=== PATIENT | female | born 1975 | race Caucasian/White ===

== ENCOUNTER 2016-12-02 16:37 | Emergency (ER) | payer MEDICAID ==
[~2016-12-02] VITALS: Ht 162.6 cm; Wt 66.2 kg
[2016-12-02] MEDS ORDERED: IV NS 0.9% 1,000 ML ONE (16:49)
[2016-12-02] MEDS ORDERED: IV SET PRIMARY 1 EA INFUS.SET MC ONE (16:49)
--- NOTE | 2016-12-02 16:50 | NUR ---
PT BIB RA WITH A C/O SEIZURE AT [facility]. PT STATED THAT SHE WAS RECENTLY D/C'D FROM [place]. PT APPEARS DISSHOVELED AND DIRTY. PT IS ON THE MONITOR AND CONTINUOUS PULSE OX. 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
[2016-12-02 16:58] LABS: BASOPHILS % (AUTO) 0.4 % (0.0-2.0); EOSINOPHILS # (AUTO) 0.1 /CMM (0.0-0.7); EOSINOPHILS % (AUTO) 0.9 % (0.0-6.0); HEMATOCRIT 37 % (33-45); HEMOGLOBIN 12.5 g/dL (11.5-14.8); LYMPHOCYTES # (AUTO) 1.6 /CMM (0.8-4.8); LYMPHOCYTES % (AUTO) 18.8 % (20.0-44.0); MEAN CORPUSCULAR HEMOGLOBIN 28 PG (26.0-33.0); MEAN CORPUSCULAR HGB CONC 34 g/dl (31.0-36.0); MEAN CORPUSCULAR VOLUME 81 fL (82-100); MONOCYTES # (AUTO) 0.3 /CMM (0.1-1.30); MONOCYTES % (AUTO) 3.2 % (2.0-12.0); NEUTROPHILS # (AUTO) 6.3 /CMM (1.8-8.9); NEUTROPHILS % (AUTO) 76.7 % (43.0-81.0); PLATELET COUNT (AUTO) 150 /CMM (150-450); RDW COEFFICIENT OF VARIATION 13.7 (11.5-15.0); RED BLOOD CELL COUNT(AUTO) 4.53 MIL/uL (4.0-5.2); WHITE BLOOD COUNT (AUTO) 8.3 K/uL (4.3-11.0)
[2016-12-02] MEDS ORDERED: IV NS 0.9% 1,000 ML IV ONE (17:00)
[2016-12-02 17:11] LABS: CALCIUM, SERUM 8.5 mg/dL (8.5-10.1); CREATININE 0.8 mg/dL (0.6-1.3)
--- NOTE | 2016-12-02 17:16 | NUR ---
Shaan beasley in [facility] - 12/02/16 at 1722 by FLORINA CALLED [facility] SPOKE WITH STEPHON Ward NOTIFIED HER OF HEAD CT RESULTS, SHE STATES SHE WILL PAGE THE SOFTWARE QUALITY ANALYST HOSPITALIST AT [facility] TO SPEAK WITH DR. JUSTIN WERNER
--- NOTE | 2016-12-02 17:55 | NUR ---
PT AMBULATED TO THE BATHROOM WITH A STEADY GAIT. NO ATAXIA NOTED. VSS.
--- NOTE | 2016-12-02 18:00 | NUR ---
IV removed. Catheter intact and site benign. Pressure and 4x4 applied to site. No bleeding noted.Patient discharged to home in stable condition. Written and verbal after care instructions given. Patient verbalizes understanding of instruction. PT CALLED A FRIEND TO PICK HER UP AND THEN PT AMBULATED OUT TO THE LOBBY TO WAIT FOR P/U. VSS
[2016-12-02 18:26] VITALS: BP 129/66
== END 2016-12-02 18:26 | disposition home or self-care (01) ==
LOC: ER 16:48
DX: R41.82 Altered mental status, unspecified (principal)
CPT/HCPCS: 36415; 80048; 85025; 96360; 99284; A4606; J7030; Z7610

== ENCOUNTER 2016-12-02 22:18 | Emergency (ER) | payer MEDICAID ==
[~2016-12-02] VITALS: Ht 165.1 cm; Wt 60.3 kg
[2016-12-02 22:40] VITALS: BP 135/77
--- NOTE | 2016-12-02 23:40 | NUR ---
PLACED IN ER LOBBY AT THIS TIME AFTER TRIAGE; AWAITING ROOM ASIGNMENT. NO S/S OF ACUTE DISTRESS NOTED AT THIS TIME. RESP EVEN AND UNLABORED. NO S/S OF TRAUMA NOTED.
--- NOTE | 2016-12-02 23:55 | NUR ---
CALLED FOR ROOM ASSIGNMENT AT THIS TIME AND NOT IN LOBBY.
--- NOTE | 2016-12-03 00:40 | NUR ---
CALLED AGAIN X3; NO ANSWER AND NOT IN LOBBY.
== END 2016-12-03 00:41 | disposition left against medical advice (07) ==
LOC: ER 22:22
DX: Z53.21 Procedure and treatment not carried out due to patient leaving prior to being seen by health care provider (principal)
CPT/HCPCS: A4606; Z7610

== ENCOUNTER 2021-05-18 20:22 | Emergency (ER) | payer MEDICAID ==
[~2021-05-18] VITALS: Ht 152.4 cm; Wt 68.0 kg
[2021-05-18 20:33] VITALS: BP 114/57
--- NOTE | 2021-05-18 21:25 | NUR ---
Patient does not wish to proceed with medical care recommended by Dr. Carvalho. Patient given information related to possible complications, up to and including , which could occur as a result of leaving the hospital at this time. Patient verbalizes understanding of risks involved due to leaving against medical advice. Patient has signed AMA form.
== END 2021-05-18 21:26 | disposition left against medical advice (07) ==
LOC: ER 20:25
DX: Z53.21 Procedure and treatment not carried out due to patient leaving prior to being seen by health care provider (principal)